=== PATIENT | male | born 1950 | race Caucasian/White ===

== ENCOUNTER → 2018-09-18 | Outpatient (CLI) | payer MEDICARE | END | disposition home or self-care (01) | LOC: CVU 09:56 | PROVIDERS: ATTEND Internal Medicine Cardiovascular Disease | DX: I11.9 Hypertensive heart disease without heart failure (principal); E78.5 Hyperlipidemia, unspecified | CPT/HCPCS: 93306 ==

== ENCOUNTER → 2018-11-13 | Outpatient (CLI) | payer MEDICARE, OTHER | END | disposition home or self-care (01) | LOC: CVU 09:26 | PROVIDERS: ATTEND Physician Assistant Medical | DX: I83.893 Varicose veins of bilateral lower extremities with other complications (principal) | CPT/HCPCS: 93970 ==

== ENCOUNTER 2018-12-09 07:47 | Outpatient (CLI) | payer MEDICARE, OTHER ==
[~2018-12-09 07:47] MED LIST: REGADENOSON 0.4 MG/5 ML SYRINGE ONE
[2019-01-02] MEDS ORDERED: [UNRECOGNIZED DRUG - OTHER] TP (13:01)
[2019-01-02] MEDS ORDERED: CARV6.252 PO (13:01)
[2019-01-02] MEDS ORDERED: WARF7.5T46 PO (13:01)
[2019-01-02] MEDS ORDERED: DIPH25CA61 PO (13:01)
[2019-01-02] MEDS ORDERED: GABA300C10 PO (13:01)
[2019-01-02] MEDS ORDERED: TRAM50TA2 PO (13:01)
[2019-01-02] MEDS ORDERED: RAPATHA INJ (13:01)
[2019-01-02] MEDS ORDERED: WARF-36 PO (13:01)
[2019-01-02] MEDS ORDERED: CIME200T6 PO (13:01)
[2019-01-02] MEDS ORDERED: TAMS-11 PO (13:01)
[2019-01-02] MEDS ORDERED: HYDR25TA6 PO (13:01)
[2019-01-02] MEDS ORDERED: DICL75TA3 PO (13:01)
[2019-01-02] MEDS ORDERED: OMEP40CA6 PO (13:01)
[2019-01-02] MEDS ORDERED: AMLO10TA8 PO (13:01)
[2019-01-02] MEDS ORDERED: ZOLP10TA5 PO (13:01)
[2019-01-02] MEDS ORDERED: LIDO76.5 TP (13:01)
[2019-01-02] MEDS ORDERED: CYCL5TAB PO (13:01)
[2019-01-17] MEDS ORDERED: DOCU-131 PO (10:45)
[2019-01-17] MEDS ORDERED: MERO1VIA15 IV (10:45)
[2019-01-17] MEDS ORDERED: METO50TA82 PO (10:45)
[2019-01-17] MEDS ORDERED: ASPI81TA45 PO (10:45)
[2019-01-17] MEDS ORDERED: CYCL-259 PO (10:45)
[2019-01-17] MEDS ORDERED: ATOR40TA78 PO (10:45)
[2019-01-17] MEDS ORDERED: AMIO200T42 PO (10:45)
[2019-01-25] MEDS ORDERED: ZOLP-413 PO (08:07)
[2019-01-25] MEDS ORDERED: FURO80TA3 PO (08:07)
[2019-01-25] MEDS ORDERED: MERO1VIA15 IV (08:07)
[2019-01-26] MEDS ORDERED: POTA20PA31 PO (10:22)
[2019-02-18] MEDS ORDERED: TRAM50TA2 PO (18:48)
[2019-02-21] MEDS ORDERED: FURO40TA6 PO (11:08)
[2019-02-21] MEDS ORDERED: DOXY100T PO (11:08)
[2019-02-21] MEDS ORDERED: CARV6.2512 PO (11:08)
[2019-02-21] MEDS ORDERED: POTA20PA25 PO (11:08)
[2019-02-21] MEDS ORDERED: APIX5TAB PO (11:08)
[2019-02-21] MEDS ORDERED: ACID1TAB7 PO (11:08)
== END 2018-12-09 23:59 | disposition home or self-care (01) ==
LOC: CFH 07:47
PROVIDERS: ATTEND Internal Medicine Cardiovascular Disease
DX: I21.19 ST elevation (STEMI) myocardial infarction involving other coronary artery of inferior wall (principal); I25.9 Chronic ischemic heart disease, unspecified; I10 Essential (primary) hypertension
CPT/HCPCS: 78452; 93017; A9502; J2785

== ENCOUNTER 2019-03-07 11:00 | Emergency (ER) | payer MEDICARE, OTHER ==
[~2019-03-07] VITALS: Ht 188 cm; Wt 108.2 kg
[~2019-03-07 11:00] MED LIST changes: +ACID1TAB7 PO; +AMIO200T42 PO; +AMLO10TA8 PO; +APIX5TAB PO; +ASPI81TA45 PO; +ATOR40TA78 PO; +CARV6.2512 PO; +CARV6.252 PO; +CIME200T6 PO; +CYCL-259 PO; +CYCL5TAB PO; +DICL75TA3 PO; +DIPH25CA61 PO; +DOCU-131 PO; +DOXY100T PO; +FURO40TA6 PO; +FURO80TA3 PO; +GABA300C10 PO; +HYDR25TA6 PO; +LIDO76.5 TP; +MERO1VIA15 IV; +METO50TA82 PO; +OMEP40CA6 PO; +POTA20PA25 PO; +POTA20PA31 PO; +RAPATHA INJ; -REGADENOSON 0.4 MG/5 ML SYRINGE ONE; +TAMS-11 PO; +TRAM50TA2 PO; +WARF-36 PO; +WARF7.5T46 PO; +ZOLP-413 PO; +ZOLP10TA5 PO; +[UNRECOGNIZED DRUG - OTHER] TP
--- NOTE | 2019-03-07 11:08 | NUR ---
NA X 1 PT IN RESTROOM
--- NOTE | 2019-03-07 11:33 | NUR ---
pt to ed for glf today after feeling lightheaded and dizzy. pt states fell forward into cabinet. abrasion to left forehead and multiple dressed skin tears to left arm. pt takes 5mg eliquis bid. pt denies neck or back pain and is unsure if lost consciousness. hx cabg 01/08/2019. pt states has had 4 falls since sunday when lasix was increased from 40mg to 80mg daily d/t swelling in left leg. pt states lasix has been changes back to 40mg starting today. pt is compliant with 1500mL daily fluid restriction. pt connected to all monitors. vss. Dr. Monique to bs for assessment. awaiting orders.
--- NOTE | 2019-03-07 11:50 | NUR ---
iv estblished and labs drawn and sent. xr complete. pt tolerated well. vss. no needs expressed. pt to ct at this time. pt aware of need for ua. awaiting results.
[2019-03-07] MEDS ORDERED: SODIUM CHLORIDE FLUSH 10ML SYR IVF ONE (12:00)
[2019-03-07 12:10] LABS: BASOPHILS # (AUTO) 0.06 x10^3/uL (0-0.1); BASOPHILS % (AUTO) 1 % (0-1); EOSINOPHILS # (AUTO) 0.28 x10^3/uL (0-0.4); EOSINOPHILS % (AUTO) 4 % (1-7); LYMPHOCYTES # (AUTO) 0.78 x10^3/uL (1-3.4); LYMPHOCYTES % (AUTO) 12 % (22-44); MD NO; MEAN CORPUSCULAR HEMOGLOBIN 31.9 pg (27.5-34.5); MEAN CORPUSCULAR HGB CONC 32.1 g/dL (33.2-36.2); MEAN CORPUSCULAR VOLUME 99.3 fL (81-97); MEAN PLATELET VOLUME 7.7 fL (7.4-10.4); MONOCYTES # (AUTO) 0.52 x10^3/uL (0.2-0.8); MONOCYTES % (AUTO) 8 % (2-9); NEUTROPHILS # (AUTO) 4.99 x10^3/uL (1.8-6.8); NEUTROPHILS % (AUTO) 75 % (42-75); PLATELET COUNT 246 x10^3/uL (130-400); RED BLOOD COUNT 4.47 x10^6/uL (4.38-5.82); RED CELL DISTRIBUTION WIDTH 15.3 % (9.4-14.8)
[2019-03-07 12:23] LABS: ALBUMIN 3.5 g/dL (3.4-5.0); ANION GAP 4 mmol/L (5-15); CALCIUM 8.5 mg/dL (8.5-10.1); CHLORIDE 99 mmol/L (98-107)
[2019-03-07 12:29] LABS: ALANINE AMINOTRANSFERASE 22 U/L (12-78); ALKALINE PHOSPHATASE 83 U/L (45-117); BILIRUBIN,TOTAL 0.6 mg/dL (0.2-1.0); CREATININE 1.66 mg/dL (0.7-1.3); TOTAL PROTEIN 7.2 g/dL (6.4-8.2)
[2019-03-07 12:34] VITALS: BP 113/58
--- NOTE | 2019-03-07 12:35 | NUR ---
pt resting in room with family at bs. no needs expressed. call light within reach. awaiting results.
== END 2019-03-07 13:36 | disposition home or self-care (01) ==
LOC: ED 13:00
DX: E86.9 Volume depletion, unspecified (principal); E86.1 Hypovolemia; Z95.1 Presence of aortocoronary bypass graft; I10 Essential (primary) hypertension; M19.90 Unspecified osteoarthritis, unspecified site; Z86.718 Personal history of other venous thrombosis and embolism
CPT/HCPCS: 36415; 70450; 71045; 80053; 83735; 83880; 85025; 99284

== ENCOUNTER → 2019-03-26 | Outpatient (CLI) | payer MEDICARE, OTHER ==
[~2019-03-26] MED LIST changes: +OMEP40CA42 PO; -OMEP40CA6 PO
== END | disposition home or self-care (01) ==
LOC: CVU 08:24
PROVIDERS: ATTEND Internal Medicine Cardiovascular Disease
DX: I08.0 Rheumatic disorders of both mitral and aortic valves (principal); R60.9 Edema, unspecified; Z82.49 Family history of ischemic heart disease and other diseases of the circulatory system; I10 Essential (primary) hypertension; E78.5 Hyperlipidemia, unspecified
CPT/HCPCS: 93306

== ENCOUNTER → 2019-04-23 | Outpatient (CLI) | payer MEDICARE, OTHER | END | disposition home or self-care (01) | LOC: WOUND 13:14 | PROVIDERS: ATTEND Internal Medicine | DX: I70.242 Atherosclerosis of native arteries of left leg with ulceration of calf (principal); I87.332 Chronic venous hypertension (idiopathic) with ulcer and inflammation of left lower extremity; L97.222 Non-pressure chronic ulcer of left calf with fat layer exposed; I89.0 Lymphedema, not elsewhere classified; I25.10 Atherosclerotic heart disease of native coronary artery without angina pectoris; E78.5 Hyperlipidemia, unspecified; M19.90 Unspecified osteoarthritis, unspecified site; I11.0 Hypertensive heart disease with heart failure; I50.9 Heart failure, unspecified; Z86.718 Personal history of other venous thrombosis and embolism; Z95.1 Presence of aortocoronary bypass graft; Z79.01 Long term (current) use of anticoagulants | CPT/HCPCS: G0463 ==

== ENCOUNTER → 2019-04-30 | Outpatient (CLI) | payer MEDICARE, OTHER | END | disposition home or self-care (01) | LOC: WOUND 14:11 | PROVIDERS: ATTEND Internal Medicine | DX: I70.242 Atherosclerosis of native arteries of left leg with ulceration of calf (principal); I87.332 Chronic venous hypertension (idiopathic) with ulcer and inflammation of left lower extremity; L97.222 Non-pressure chronic ulcer of left calf with fat layer exposed; I89.0 Lymphedema, not elsewhere classified; I25.10 Atherosclerotic heart disease of native coronary artery without angina pectoris; E78.5 Hyperlipidemia, unspecified; M19.90 Unspecified osteoarthritis, unspecified site; I11.0 Hypertensive heart disease with heart failure; I50.9 Heart failure, unspecified; Z86.718 Personal history of other venous thrombosis and embolism; Z95.1 Presence of aortocoronary bypass graft; Z79.01 Long term (current) use of anticoagulants | CPT/HCPCS: G0463 ==

== ENCOUNTER → 2019-05-13 | Outpatient (CLI) | payer MEDICARE, OTHER | END | disposition home or self-care (01) | LOC: CVU 11:52 | PROVIDERS: ATTEND Internal Medicine | DX: I87.333 Chronic venous hypertension (idiopathic) with ulcer and inflammation of bilateral lower extremity (principal); L97.222 Non-pressure chronic ulcer of left calf with fat layer exposed | CPT/HCPCS: 93922; 93925; 93970 ==

== ENCOUNTER 2019-06-02 12:59 | Outpatient (CLI) | payer MEDICARE, OTHER | END 2019-06-02 23:59 | disposition home or self-care (01) | LOC: WOUND 12:59 | PROVIDERS: ATTEND Internal Medicine | DX: I70.242 Atherosclerosis of native arteries of left leg with ulceration of calf (principal); I87.332 Chronic venous hypertension (idiopathic) with ulcer and inflammation of left lower extremity; L97.222 Non-pressure chronic ulcer of left calf with fat layer exposed; I89.0 Lymphedema, not elsewhere classified; I25.10 Atherosclerotic heart disease of native coronary artery without angina pectoris; E78.5 Hyperlipidemia, unspecified; M19.90 Unspecified osteoarthritis, unspecified site; I11.0 Hypertensive heart disease with heart failure; I50.9 Heart failure, unspecified; Z86.718 Personal history of other venous thrombosis and embolism; Z95.1 Presence of aortocoronary bypass graft; Z79.01 Long term (current) use of anticoagulants | CPT/HCPCS: G0463 ==

== ENCOUNTER 2019-06-22 12:33 | Emergency (ER) | payer MEDICARE, OTHER ==
[~2019-06-22] VITALS: Ht 188 cm; Wt 104.6 kg
[2019-06-22 12:36] VITALS: BP 135/82
== END 2019-06-22 13:23 | disposition home or self-care (01) ==
LOC: ED 13:15
DX: S61.432A Puncture wound without foreign body of left hand, initial encounter (principal); I10 Essential (primary) hypertension; M19.90 Unspecified osteoarthritis, unspecified site; Z86.718 Personal history of other venous thrombosis and embolism; Z95.1 Presence of aortocoronary bypass graft; W26.0XXA Contact with knife, initial encounter; Y93.89 Activity, other specified; Y92.009 Unspecified place in unspecified non-institutional (private) residence as the place of occurrence of the external cause; Y99.8 Other external cause status
CPT/HCPCS: 12001; 99283

== ENCOUNTER 2020-08-23 12:19 | Outpatient (CLI) | payer MEDICARE, OTHER ==
[~2020-08-23 12:19] MED LIST changes: +AMLO-211 PO; -AMLO10TA8 PO; -CYCL-259 PO; +CYCL10TA2 PO; -MERO1VIA15 IV; +MERO1VIA24 IV; -OMEP40CA42 PO; +OMEP40CA8 PO; +REGADENOSON 0.4 MG/5 ML SYRINGE ONE
== END 2020-08-23 23:59 | disposition home or self-care (01) ==
LOC: CFH 12:19
PROVIDERS: ATTEND Nurse Practitioner Family
DX: I21.19 ST elevation (STEMI) myocardial infarction involving other coronary artery of inferior wall (principal); I25.10 Atherosclerotic heart disease of native coronary artery without angina pectoris
CPT/HCPCS: 78452; 93017; A9502; J2785